=== PATIENT | female | born 1945 | race Caucasian/White ===

== ENCOUNTER → 2023-09-24 11:22 | Outpatient (REF) | payer OTHER, SELFPAY | LOC: DHCBS MAIN 11:22 | PROVIDERS: ATTENDING PHYSICIAN Internal Medicine Cardiovascular Disease; FAMILY PHYSICIAN Internal Medicine | DX: Z95.3 Presence of xenogenic heart valve (principal) | CPT/HCPCS: 93306 ==

== ENCOUNTER 2023-10-27 20:15 | Emergency (ER) | payer OTHER, SELFPAY ==
[2023-10-27 20:24] VITALS: BP 160/100
--- NOTE | 2023-10-27 23:07 | ED.GENMED ---
History of Present Illness
General
Chief Complaint: Post Operative Problem(s)
Source: patient
Exam Limitations: none
Time Seen by Provider: 10/27/23 20:37
Nursing documentation reviewed up to this point in time: agreed with
Travel History
Have you had any contact with someone who has COVID-19?: No
Do you have any symptoms of coronavirus? Fever > 100 degrees, chills, cough, shortness of breath, sore throat, loss of taste or smell, muscle aches, or headache?: No
History of Present Illness
History of Present Illness:
Patient had Mohs procedure to right forehead yesterday, revision today. Complains of bleeding from site. Brought to ED by spouse for eval.
Past History
Past History
ED Past Medical History: HTN, Hypercholesterolemia, Valvular disease, Hypothyroidism and Other
ED Past Surgical History: Appendectomy, Cardiac, Cholecystectomy, Gynecological and Orthopedic
Social History
Tobacco: Smoker
Alcohol: Daily
Drug: None
Personal:
Living: with family
Employment: Employed
Family History
Family History: Other (Noncontributory)
Review of Systems
Review of Systems
Allergies reviewed?: Yes
All Other Systems: ROS reviewed and negative except as documented in HPI and ROS
Constitutional: Reports no symptoms
Skin: Reports other (bleeding from mohs surgical site forehead)
Neurological: Reports no symptoms
Psychiatric: Reports no symptoms
Phy Exam
General Physical Exam
General Presentation: well appearing and no apparent distress
General age: appears stated age
General Skin: warm and dry
General Habitus: normal
General Mental: alert
Musculoskeletal Exam
Musculoskeletal Exam: full ROM
Skin Exam
Skin Exam: normal color, warm/dry, no rash and other (Mohs procedure to forhead. Bleeding along lateral edge. Pressure applied without success. WOund infiltrated with Lidocaine 1% and bleeder cauterized with success. Non stick dressing applied
by RN)
Psychiatric Exam
Psychiatric Exam: normal mood/affect
Course
Orders/Labs/Results
Orders:
Orders
10/27/23 21:16
Lidocaine/Epinephrine/Tetracai [Let Topical Anesthetic Gel] 3 ml .ROUTE .STK-MED ONE
Vital Signs
Initial and Last Documented VS:
Initial Vital Signs
Temp Pulse Resp BP Pulse Ox
97.7 F 71 17 160/100 97
10/27/23 20:24 10/27/23 20:24 10/27/23 20:24 10/27/23 20:24 10/27/23 20:24
Last Documented Vital Signs
Temp Pulse Resp BP Pulse Ox
97.7 F 71 17 160/100 97
10/27/23 20:24 10/27/23 20:24 10/27/23 20:24 10/27/23 20:24 10/27/23 20:24
*Critical Care Note
Total Time (30-74mins, 75-104mins- exclusive of procedures): Not Applicable
ED Attending Note
-
Portions of this chart may have been created with voice recognition software.� Occasional wrong word or��sound alike� substitutions may have occurred due to the inherent limitations of voice recognition software.
Discharge Plan
Departure
Patient Disposition: Home (Routine Discharge)
Date of Disposition: 10/27/23
Time of Disposition: 22:27
Patient with high blood pressure during this ER visit?: No
Condition: Good
Covid-19: Not Applicable
Discharge Problem:
Bleeding from wound
Instructions: Bleeding After Surgery
Prescriptions:
No Action
valsartan-hydrochlorothiazide 1 EACH tablet
1 ea PO DAILY
levothyroxine 25 MCG tablet
25 mcg PO MOTUWETH
multivitamin 1 EACH tablet
1 ea PO DAILY
levothyroxine 50 MCG tablet
50 mcg PO SUFRSA
cholecalciferol (vitamin D3) [Vitamin D3] 1,000 UNIT capsule
2,000 unit PO DAILY
aspirin 81 MG tablet,delayed release (DR/EC)
81 mg PO DAILY
albuterol sulfate [Proventil HFA] 90 MCG/PUFF HFA aerosol inhaler
1 puff inhalation Q4HPRN PRN (Reason: shortness of breath) Qty: 1 0RF
bfhmkinbzpd-eraecdjzi-zkajpsnq [Trelegy Ellipta] 1 EACH blister with device
1 puff inhalation DAILY
Patient Comments:
unknown exact dose
metoprolol succinate 50 MG tablet extended release 24 hr
50 mg PO BID Qty: 60 11RF
Rx Instructions:
Increase Toprol XL (metoprolol succinate) to 50 mg twice a day
pantoprazole 40 MG tablet,delayed release (DR/EC)
40 mg PO DAILY 14 Days Qty: 14 0RF
Referrals:
Jas Ocampo MD [Family Provider] -
Activity Restrictions/Additional Instructions:
Follow up with your surgeon in the AM
Interventions
Interventions:
*Risk Screen - Suicide Last Done: 10/27/23 20:23
*General Assessment Last Done: 10/27/23 20:23
*Neglect/Abuse Screening Last Done: 10/27/23 20:23
ED- Fall Risk Assessment Last Done: 10/27/23 22:33
*ED COVID-19 Vaccine History Last Done: 10/27/23 20:23
*Nursing Disposition Last Done: 10/27/23 22:33
ED-Skin Assessment Last Done: 10/27/23 20:39
Discharge Date and Time
Discharge Date/Time: 10/27/23 22:34
Print Language: [place]ET[place]ESE
== END 2023-10-27 22:34 | disposition home or self-care (01) ==
LOC: EMR 20:15
PROVIDERS: EMERGENCY PHYSICIAN Emergency Medicine; FAMILY PHYSICIAN Internal Medicine; REFERRING PHYSICIAN Dermatology MOHS-Micrographic Surgery
DX: L76.21 Postprocedural hemorrhage of skin and subcutaneous tissue following a dermatologic procedure (principal); F17.200 Nicotine dependence, unspecified, uncomplicated; Y83.8 Other surgical procedures as the cause of abnormal reaction of the patient, or of later complication, without mention of misadventure at the time of the procedure
CPT/HCPCS: 99283

== ENCOUNTER → 2024-09-09 12:51 | Outpatient (REF) | payer OTHER, SELFPAY | LOC: RCS 12:51 | PROVIDERS: ATTENDING PHYSICIAN Internal Medicine Cardiovascular Disease; FAMILY PHYSICIAN Internal Medicine | DX: Z95.3 Presence of xenogenic heart valve (principal) | CPT/HCPCS: 93306 ==

== ENCOUNTER → 2024-09-26 16:42 | Outpatient (REF) | payer OTHER, SELFPAY | LOC: RAD 16:42 | PROVIDERS: ATTENDING PHYSICIAN Internal Medicine | DX: M25.551 Pain in right hip (principal) | CPT/HCPCS: 73502 ==

== ENCOUNTER → 2024-10-10 10:36 | Outpatient (REF) | payer OTHER, SELFPAY | LOC: WDC 10:36 | PROVIDERS: ATTENDING PHYSICIAN Obstetrics & Gynecology; FAMILY PHYSICIAN Internal Medicine | DX: Z12.31 Encounter for screening mammogram for malignant neoplasm of breast (principal) | CPT/HCPCS: 77063; 77067 ==

== ENCOUNTER → 2025-05-26 13:20 | Outpatient (REF) | payer OTHER, SELFPAY | LOC: RAD 13:20 | PROVIDERS: ATTENDING PHYSICIAN Student in an Organized Health Care Education/Training Program; FAMILY PHYSICIAN Internal Medicine | DX: I87.2 Venous insufficiency (chronic) (peripheral) (principal) | CPT/HCPCS: 93970 ==

== ENCOUNTER → 2025-06-28 19:20 | Outpatient (REF) | payer OTHER, SELFPAY | LOC: MRI 19:20 | PROVIDERS: ATTENDING PHYSICIAN Student in an Organized Health Care Education/Training Program; FAMILY PHYSICIAN Internal Medicine | DX: M25.572 Pain in left ankle and joints of left foot (principal) | CPT/HCPCS: 73721 ==